=== PATIENT | female | born 1940 | race Caucasian/White ===

== ENCOUNTER 2021-01-28 17:21 | Emergency (ER) | payer MEDICARE, OTHER ==
[~2021-01-28] VITALS: Ht 165.1 cm; Wt 48.5 kg
--- NOTE | 2021-01-28 17:28 | ED General ---
General Stated Complaint: MEDICAL CHECK History of Present Illness Date Seen by Provider: Jan 28, 2021 Time Seen by Provider: 17:24 Initial Comments 80-year-old female brought in by EMS. EMS was called out from medical check after patient did not answer the phone. Patient also did not answer the door and the door was open by law enforcement per EMS. Patient reports that she did not answer the door or the phone because she "has a headache" and is tired. Patient reports that these are her only symptoms. She does not state when it started. Patient was lethargic per EMS when they arrived. Patient was given Narcan due to prescription for opioids which they feel seem to help. Patient does not want to answer a lot of questions but just states she is tired and wants to sleep. Allergies and Home Medications Allergies Coded Allergies: Sulfa (Sulfonamide Antibiotics) (Verified Allergy, Unknown, 01/28/21) erythromycin base (Verified Allergy, Unknown, 01/28/21) Home Medications Cephalexin 500 Mg Tablet, 500 MG PO QID Prescribed by: MASTER PARKER on 01/28/211813 Patient Home Medication List Home Medication List Reviewed: Yes Review of Systems Review of Systems Constitutional: see HPI EENTM: no symptoms reported Respiratory: no symptoms reported Cardiovascular: no symptoms reported Gastrointestinal: no symptoms reported Genitourinary: no symptoms reported Musculoskeletal: no symptoms reported Skin: no symptoms reported Psychiatric/Neurological: See HPI Hematologic/Lymphatic: No Symptoms Reported Immunological/Allergic: no symptoms reported Physical Exam Vital Signs Vital Signs - First Documented 01/28/21 17:21 Temp 36.0 Pulse 83 Resp 16 B/P (MAP) 126/60 (82) Pulse Ox 97 O2 Delivery Room Air Capillary Refill : Height, Weight, BMI Height: '" Weight: lbs. oz. 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 Norm as Tested, Other (Fatigued) Skin: Normal Color, Warm/Dry Focused Exam Lactate Level 01/28/21 17:45: Lactic Acid Level 0.95 Lactic Acid Level Laboratory Tests Test 01/28/21 17:45 Lactic Acid Level 0.95 MMOL/L (0.50-2.00) Progress/Results/Core Measures Suspected Sepsis SIRS Temperature: Pulse: Respiratory Rate: Laboratory Tests 01/28/21 17:30: White Blood Count 11.1H Blood Pressure / Mean: 01/28/21 17:45: Lactic Acid Level 0.95 Laboratory Tests 01/28/21 17:30: Creatinine 0.99, Platelet Count 272, Total Bilirubin 0.4 Results/Orders Lab Results Laboratory Tests Test 01/28/21 17:30 01/28/21 17:45 Range/Units White Blood Count 11.1 H 4.3-11.0 10^3/uL Red Blood Count 3.93 L 4.35-5.85 10^6/uL Hemoglobin 11.8 11.5-16.0 G/DL Hematocrit 37 35-52 % Mean Corpuscular Volume 93 80-99 FL Mean Corpuscular Hemoglobin 30 25-34 PG Mean Corpuscular Hemoglobin Concent 32 32-36 G/DL Red Cell Distribution Width 12.5 10.0-14.5 % Platelet Count 272 130-400 10^3/uL Mean Platelet Volume 10.0 7.4-10.4 FL Immature Granulocyte % (Auto) 0 % Neutrophils (%) (Auto) 65 42-75 % Lymphocytes (%) (Auto) 29 12-44 % Monocytes (%) (Auto) 5 0-12 % Eosinophils (%) (Auto) 0 0-10 % Basophils (%) (Auto) 1 0-10 % Neutrophils # (Auto) 7.2 1.8-7.8 X 10^3 Lymphocytes # (Auto) 3.2 1.0-4.0 X 10^3 Monocytes # (Auto) 0.6 0.0-1.0 X 10^3 Eosinophils # (Auto) 0.1 0.0-0.3 10^3/uL Basophils # (Auto) 0.1 0.0-0.1 10^3/uL Immature Granulocyte # (Auto) 0.0 0.0-0.1 10^3/uL Percent Immature Platelet Fraction 1.8 0.0-7.6 % Sodium Level 141 135-145 MMOL/L Potassium Level 3.8 3.6-5.0 MMOL/L Chloride Level 111 H 98-107 MMOL/L Carbon Dioxide Level 23 21-32 MMOL/L Anion Gap 7 5-14 MMOL/L Blood Urea Nitrogen 14 7-18 MG/DL Creatinine 0.99 0.60-1.30 MG/DL Estimat Glomerular Filtration Rate 54 BUN/Creatinine Ratio 14 Glucose Level 98 70-105 MG/DL Calcium Level 8.9 8.5-10.1 MG/DL Corrected Calcium 9.3 8.5-10.1 MG/DL Magnesium Level 2.2 1.6-2.4 MG/DL Total Bilirubin 0.4 0.1-1.0 MG/DL Aspartate Amino Transf (AST/SGOT) 15 5-34 U/L Alanine Aminotransferase (ALT/SGPT) 7 0-55 U/L Alkaline Phosphatase 41 40-136 U/L Total Protein 5.7 L 6.4-8.2 GM/DL Albumin 3.5 3.2-4.5 GM/DL Urine Color YELLOW Urine Clarity CLEAR Urine pH 6.5 5-9 Urine Specific [place] <=1.005 1.016-1.022 Urine Protein NEGATIVE NEGATIVE Urine Glucose (UA) NEGATIVE NEGATIVE Urine Ketones NEGATIVE NEGATIVE Urine Nitrite NEGATIVE NEGATIVE Urine Bilirubin NEGATIVE NEGATIVE Urine Urobilinogen 0.2 < = 1.0 MG/DL Urine Leukocyte Esterase 2+ H NEGATIVE Urine RBC (Auto) NEGATIVE NEGATIVE Urine RBC NONE /HPF Urine WBC 5-10 H /HPF Urine Squamous Epithelial Cells 0-2 /HPF Urine Crystals NONE /LPF Urine Bacteria NEGATIVE /HPF Urine Casts PRESENT /LPF Urine Hyaline Casts 2-5 H /LPF Urine Mucus NEGATIVE /LPF Urine Culture Indicated NO Lactic Acid Level 0.95 0.50-2.00 MMOL/L My Orders Orders - PARKER,MASTER L DO Ct Head Wo (01/28/21 17:28) Cbc With Automated Diff (01/28/21 17:28) Comprehensive Metabolic Panel (01/28/21 17:28) Lactic Acid Analyzer (01/28/21 17:28) Magnesium (01/28/21 17:28) Ua Culture If Indicated (01/28/21 17:28) Accucheck Stat ONCE (01/28/21 17:29) Ekg Tracing (01/28/21 17:29) Ceftriaxone (Rocephin) (01/28/21 18:15) Ketorolac Injection (Toradol Injection) (01/28/21 18:10) Medications Given in ED Current Medications Medications Dose Ordered Sig/James Route Start Time Stop Time Status Last Admin Dose Admin Ceftriaxone Sodium 1000 mg/ Sterile Water 10 ml @ 200 mls/hr ONCE ONCE IV 01/28/21 18:15 01/28/21 18:17 DC 01/28/21 18:18 200 MLS/HR Vital Signs/I&O 01/28/21 17:21 Temp 36.0 Pulse 83 Resp 16 B/P (MAP) 126/60 (82) Pulse Ox 97 O2 Delivery Room Air Capillary Refill : Progress Note : Progress Note Patient able to ambulate and answer all questions appropriately throughout her stay. Patient does not seem as fatigued as when she initially got here. Patient has slight elevated white count and a questionable urine. With the fatigue, headache and lab findings I will treat her for UTI. Patient's work-up was otherwise normal. Patient will be discharged back home. I will prescribe her Keflex for 5 days after receiving Rocephin here in the ER. ECG Initial ECG Impression Date: Jan 28, 2021 Initial ECG Impression Time: 18:01 Initial ECG Rate: 83 Initial ECG Rhythm: Normal Sinus, PVC Initial ECG Impression: Nonspecific Changes Comment no acute changes Diagnostic Imaging Diagonstic Imaging: CT Plain Films/CT/US/NM/MRI: head Comments Date of Exam:01/28/21 CT HEAD WO PROCEDURE: CT head without contrast. TECHNIQUE: Multiple contiguous axial images were obtained through the brain without the use of intravenous contrast. Auto Exposure Controls were utilized during the CT exam to meet ALARA standards for radiation dose reduction. INDICATION: Altered mental status and headache. COMPARISON: None available. FINDINGS: No hyperdense hemorrhage or space-occupying mass. No hydrocephalus or midline shift. The basilar cisterns are normal. Griffin-white matter differentiation is well preserved. Global atrophy is present The mastoid air cells are clear. Paranasal sinuses are normal. No focal osseous abnormality of the calvarium. IMPRESSION: 1. No acute intracranial process. Reviewed: Reviewed by Me, Reviewed/Discussed Departure Impression Primary Impression: Acute cystitis Qualified Codes: N30.00 - Acute cystitis without hematuria Disposition: HOME, SELF-CARE Condition: Stable Departure-Patient Inst. Patient Instructions: Acute Cystitis (DC) Add. Discharge Instructions: Drink plenty of fluids, follow-up with your primary care provider as needed Scripts Cephalexin (Cephalexin) 500 Mg Tablet 500 MG PO QID, #20 TAB 0 Refills Prov: MASTER PARKER DO 01/28/21 MASTER PARKER DO Jan 28, 2021 17:27
[2021-01-28 17:41] LABS: BASOPHILS % (AUTO) 1 % (0-10); EOSINOPHILS % (AUTO) 0 % (0-10); HEMATOCRIT 37 % (35-52); HEMOGLOBIN 11.8 G/DL (11.5-16.0); LYMPHOCYTES % (AUTO) 29 % (12-44); MEAN CORPUSCULAR HEMOGLOBIN 30 PG (25-34); MEAN CORPUSCULAR HGB CONC 32 G/DL (32-36); MEAN CORPUSCULAR VOLUME 93 FL (80-99); MONOCYTES % (AUTO) 5 % (0-12); NEUTROPHILS # (AUTO) 7.2 X 10^3 (1.8-7.8); NEUTROPHILS % (AUTO) 65 % (42-75); PLATELET COUNT 272 10^3/uL (130-400); WHITE BLOOD COUNT 11.1 10^3/uL (4.3-11.0)
[2021-01-28 17:42] LABS: BASOPHILS # (AUTO) 0.1 10^3/uL (0.0-0.1); EOSINOPHILS # (AUTO) 0.1 10^3/uL (0.0-0.3); LYMPHOCYTES # (AUTO) 3.2 X 10^3 (1.0-4.0); MONOCYTES # (AUTO) 0.6 X 10^3 (0.0-1.0)
--- NOTE | 2021-01-28 17:45 | Diagnostic Imaging Report ---
PROCEDURE: CT head without contrast. TECHNIQUE: Multiple contiguous axial images were obtained through the brain without the use of intravenous contrast. Auto Exposure Controls were utilized during the CT exam to meet ALARA standards for radiation dose reduction. INDICATION: Altered mental status and headache. COMPARISON: None available. FINDINGS: No hyperdense hemorrhage or space-occupying mass. No hydrocephalus or midline shift. The basilar cisterns are normal. Griffin-white matter differentiation is well preserved. Global atrophy is present The mastoid air cells are clear. Paranasal sinuses are normal. No focal osseous abnormality of the calvarium. IMPRESSION: 1. No acute intracranial process. Dictated by: Dictated on workstation # [id number]
[2021-01-28 17:51] LABS: BILIRUBIN,URINE NEGATIVE (NEGATIVE); CLARITY,URINE CLEAR; COLOR,URINE YELLOW; GLUCOSE, URINE (UA) NEGATIVE (NEGATIVE); KETONES,URINE NEGATIVE (NEGATIVE); LEUKOCYTE ESTERASE ,URINE 2+ (NEGATIVE); NITRITE,URINE NEGATIVE (NEGATIVE); PH,URINE 6.5 (5-9); PROTEIN,URINE NEGATIVE (NEGATIVE)
[2021-01-28 18:03] LABS: BACTERIA,URINE NEGATIVE /HPF; SQUAMOUS EPITHELIAL CELL,UR 0-2 /HPF
[2021-01-28 18:05] LABS: ALBUMIN 3.5 GM/DL (3.2-4.5); BILIRUBIN,TOTAL 0.4 MG/DL (0.1-1.0); CALCIUM 8.9 MG/DL (8.5-10.1); CREATININE SERUM 0.99 MG/DL (0.60-1.30); MAGNESIUM 2.2 MG/DL (1.6-2.4); POTASSIUM 3.8 MMOL/L (3.6-5.0); TOTAL PROTEIN 5.7 GM/DL (6.4-8.2)
[2021-01-28] MEDS ORDERED: KETOROLAC 30 MG/ML VIAL IVP STA (18:10)
[2021-01-28] MEDS ORDERED: CEPH500T PO (18:14)
[2021-01-28] MEDS ORDERED: cefTRIAXone 1,000 MG in WATER (STERILE) FOR INJECTION 10 ML IV ONE (18:15)
[2021-01-28 18:25] VITALS: BP 132/66
== END 2021-01-28 18:25 | disposition home or self-care (01) ==
LOC: ER FS 17:22
DX: N30.00 Acute cystitis without hematuria (principal)
CPT/HCPCS: 36415; 70450; 80053; 81000; 83605; 83735; 85025; 93005

== ENCOUNTER 2022-04-05 13:18 | Emergency (ER) | payer MEDICARE, OTHER ==
[~2022-04-05 13:18] MED LIST: CEPH500T PO
[2022-04-05 13:40] LABS: BILIRUBIN,URINE NEGATIVE (NEGATIVE); CLARITY,URINE CLEAR; COLOR,URINE YELLOW; GLUCOSE, URINE (UA) NEGATIVE (NEGATIVE); KETONES,URINE NEGATIVE (NEGATIVE); LEUKOCYTE ESTERASE ,URINE TRACE (NEGATIVE); NITRITE,URINE NEGATIVE (NEGATIVE); PROTEIN,URINE NEGATIVE (NEGATIVE)
[2022-04-05 13:40] LABS: BASOPHILS # (AUTO) 0.1 10^3/uL (0.0-0.1); BASOPHILS % (AUTO) 1 % (0-10); EOSINOPHILS # (AUTO) 0.2 10^3/uL (0.0-0.3); EOSINOPHILS % (AUTO) 2 % (0-10); HEMATOCRIT 36 % (35-52); HEMOGLOBIN 11.5 g/dL (11.5-16.0); LYMPHOCYTES # (AUTO) 3.2 10^3/uL (1.0-4.0); LYMPHOCYTES % (AUTO) 25 % (12-44); MEAN CORPUSCULAR HEMOGLOBIN 31 pg (25-34); MEAN CORPUSCULAR HGB CONC 32 g/dL (32-36); MEAN CORPUSCULAR VOLUME 96 fL (80-99); MEAN PLATELET VOLUME 9.8 fL (9.0-12.2); MONOCYTES # (AUTO) 0.8 10^3/uL (0.0-1.0); MONOCYTES % (AUTO) 6 % (0-12); NEUTROPHILS # (AUTO) 8.6 10^3/uL (1.8-7.8); NEUTROPHILS % (AUTO) 66 % (42-75); PLATELET COUNT 257 10^3/uL (130-400); WHITE BLOOD COUNT 12.9 10^3/uL (4.3-11.0)
[2022-04-05] MEDS ORDERED: NS IV 1000 ML 1,000 ML IV STA (13:42)
[2022-04-05 13:47] LABS: BACTERIA,URINE MODERATE /HPF; WBC,URINE 25-50 /HPF
--- NOTE | 2022-04-05 13:49 | ED General ---
General Chief Complaint: Altered Mental Status Stated Complaint: CONFUSED Source of Information: Patient History of Present Illness Date Seen by Provider: Apr 05, 2022 Time Seen by Provider: 13:21 Initial Comments 81 yo female presents with complaint of being tired. She was brought by her family and they state she is more confused than usual and that this is a change since yesterday. Her daughter talked to her several times on the phone yesterday and said she was doing ok then. Today she is slow to answer questions and keeps saying she is tired. She has complaint of increased bile and upset stomach. She states she saw Dr. Brooks 4 days ago and she got Influenza and Pneumonia shots. She reports that he did a CT scan of her abdomen/pelvis because she was having pain. She denies vomiting, diarrhea, constipation, pain with urination. She was prescribed Oxycodone, Alprazolam and Promethazine this week. She reports taking Oxycodone and Alprazolam last night and Promethazine today. She denies fall or injury. Timing/Duration: 12-24 Hours Severity: Moderate Associated Systoms: No Chest Pain, No Cough, No Diaphoresis, No Fever/Chills, No Headaches, No Loss of Appetite, No Malaise, No Rash, No Seizure, No Shortness of Air, No Syncope, No Weakness Allergies and Home Medications Allergies Coded Allergies: Sulfa (Sulfonamide Antibiotics) (Verified Allergy, Unknown, 01/28/21) erythromycin base (Verified Allergy, Unknown, 01/28/21) Patient Home Medication List Home Medication List Reviewed: Yes Cephalexin (Cephalexin) 500 Mg Capsule, 500 MG PO TID Prescribed by: YONI BERUMEN on 04/05/22 1445 Discontinued Medications Cephalexin (Cephalexin) 500 Mg Tablet, 500 MG PO QID Prescribed by: MASTER PARKER on 01/28/21 1814 Review of Systems Review of Systems Constitutional: No chills, No dizziness, No fever EENTM: No ear discharge, No ear pain, No vision loss, No nose congestion Respiratory: No cough, No short of breath Cardiovascular: No chest pain Gastrointestinal: see HPI Genitourinary: decreased output Musculoskeletal: no symptoms reported Skin: No rash Psychiatric/Neurological: Denies Headache, Denies Numbness, Denies Weakness Hematologic/Lymphatic: Denies Blood Clots Past Hdhdkiq-Ikitvt-Oupkrh Hx Patient Social History Tobacco Use?: No Use of E-Cig and/or Vaping dev: No Substance use?: No Alcohol Use?: No Pt feels they are or have been: No Past Medical History Surgery/Hospitalization HX: Hypothyroid Physical Exam Vital Signs Vital Signs - First Documented 04/05/22 13:41 Temp 35.6 Pulse 96 Resp 18 B/P (MAP) 127/64 (85) Pulse Ox 96 O2 Delivery Room Air Capillary Refill : Height, Weight, BMI Height: '" Weight: lbs. oz. kg; 17.00 BMI Method: General Appearance: No Apparent Distress, WD/WN HEENT: PERRL/EOMI, Pharynx Normal Neck: Full Range of Motion, Normal Inspection, Non Tender, Supple Respiratory: Chest Non Tender, Lungs Clear, Normal Breath Sounds, No Accessory Muscle Use, No Respiratory Distress Cardiovascular: Regular Rate, Rhythm, Normal Peripheral Pulses Gastrointestinal: Normal Bowel Sounds, No Pulsatile Mass, Soft; No Distended, No Guarding, No Hepatomegaly, No Rebound; Tenderness (epigastric and suprapubic) Rectal: Deferred Extremity: Normal Capillary Refill, Normal Inspection, No Pedal Edema Neurologic/Psychiatric: Alert, Oriented x3 (slow to answer questions but oriented x 3. 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 Norm as Tested Skin: Normal Color, Warm/Dry Progress/Results/Core Measures Suspected Sepsis SIRS Temperature: Pulse: Respiratory Rate: Laboratory Tests 04/05/22 13:35: White Blood Count 12.9H Blood Pressure / Mean: Laboratory Tests 04/05/22 13:35: Creatinine 1.23, INR Comment 1.0, Platelet Count 257, Total Bilirubin 0.2 Results/Orders Lab Results Laboratory Tests Test 04/05/22 13:30 04/05/22 13:35 Range/Units Urine Color YELLOW Urine Clarity CLEAR Urine pH 6.0 5-9 Urine Specific [place] 1.020 1.016-1.022 Urine Protein NEGATIVE NEGATIVE Urine Glucose (UA) NEGATIVE NEGATIVE Urine Ketones NEGATIVE NEGATIVE Urine Nitrite NEGATIVE NEGATIVE Urine Bilirubin NEGATIVE NEGATIVE Urine Urobilinogen 0.2 < = 1.0 MG/DL Urine Leukocyte Esterase TRACE H NEGATIVE Urine RBC (Auto) NEGATIVE NEGATIVE Urine RBC NONE /HPF Urine WBC 25-50 H /HPF Urine Squamous Epithelial Cells 10-25 H /HPF Urine Crystals NONE /LPF Urine Bacteria MODERATE H /HPF Urine Casts PRESENT /LPF Urine Hyaline Casts 5-10 H /LPF Urine Mucus NEGATIVE /LPF Urine Culture Indicated YES Urine Opiates Screen NEGATIVE NEGATIVE Urine Oxycodone Screen POSITIVE H NEGATIVE Urine Methadone Screen NEGATIVE NEGATIVE Urine Propoxyphene Screen NEGATIVE NEGATIVE Urine Barbiturates Screen NEGATIVE NEGATIVE Ur Tricyclic Antidepressants Screen POSITIVE H NEGATIVE Urine Phencyclidine Screen NEGATIVE NEGATIVE Urine Amphetamines Screen NEGATIVE NEGATIVE Urine Methamphetamines Screen NEGATIVE NEGATIVE Urine Benzodiazepines Screen POSITIVE H NEGATIVE Urine Cocaine Screen NEGATIVE NEGATIVE Urine Cannabinoids Screen NEGATIVE NEGATIVE White Blood Count 12.9 H 4.3-11.0 10^3/uL Red Blood Count 3.71 L 3.80-5.11 10^6/uL Hemoglobin 11.5 11.5-16.0 g/dL Hematocrit 36 35-52 % Mean Corpuscular Volume 96 80-99 fL Mean Corpuscular Hemoglobin 31 25-34 pg Mean Corpuscular Hemoglobin Concent 32 32-36 g/dL Red Cell Distribution Width 12.9 10.0-14.5 % Platelet Count 257 130-400 10^3/uL Mean Platelet Volume 9.8 9.0-12.2 fL Immature Granulocyte % (Auto) 0 % Neutrophils (%) (Auto) 66 42-75 % Lymphocytes (%) (Auto) 25 12-44 % Monocytes (%) (Auto) 6 0-12 % Eosinophils (%) (Auto) 2 0-10 % Basophils (%) (Auto) 1 0-10 % Neutrophils # (Auto) 8.6 H 1.8-7.8 10^3/uL Lymphocytes # (Auto) 3.2 1.0-4.0 10^3/uL Monocytes # (Auto) 0.8 0.0-1.0 10^3/uL Eosinophils # (Auto) 0.2 0.0-0.3 10^3/uL Basophils # (Auto) 0.1 0.0-0.1 10^3/uL Immature Granulocyte # (Auto) 0.0 0.0-0.1 10^3/uL Prothrombin Time 13.1 12.2-14.7 SEC INR Comment 1.0 0.8-1.4 Activated Partial Thromboplast Time 29 24-35 SEC Sodium Level 139 135-145 MMOL/L Potassium Level 3.7 3.6-5.0 MMOL/L Chloride Level 105 98-107 MMOL/L Carbon Dioxide Level 26 21-32 MMOL/L Anion Gap 8 5-14 MMOL/L Blood Urea Nitrogen 19 H 7-18 MG/DL Creatinine 1.23 0.60-1.30 MG/DL Estimat Glomerular Filtration Rate 44 BUN/Creatinine Ratio 15 Glucose Level 82 70-105 MG/DL Calcium Level 9.3 8.5-10.1 MG/DL Corrected Calcium 9.4 8.5-10.1 MG/DL Magnesium Level 2.2 1.6-2.4 MG/DL Total Bilirubin 0.2 0.1-1.0 MG/DL Aspartate Amino Transf (AST/SGOT) 39 H 5-34 U/L Alanine Aminotransferase (ALT/SGPT) 21 0-55 U/L Alkaline Phosphatase 72 40-136 U/L Troponin I < 0.30 <0.30 NG/ML Pro-B-Type Natriuretic Peptide 551.2 H <450.0 PG/ML Total Protein 6.4 6.4-8.2 GM/DL Albumin 3.9 3.2-4.5 GM/DL My Orders Orders - YONI BERUMEN MD Cbc With Automated Diff (04/05/22 13:29) Magnesium (04/05/22 13:29) Comprehensive Metabolic Panel (04/05/22 13:29) Protime With Inr (04/05/22 13:29) Partial Thromboplastin Time (04/05/22 13:29) O2 (04/05/22 13:29) Monitor-Rhythm Ecg Trace Only (04/05/22 13:29) Ed Iv/Invasive Line Start (04/05/22 13:29) Troponin I Fs (04/05/22 13:29) Probnp Fs (04/05/22 13:29) Ua Culture If Indicated (04/05/22 13:29) Drug Screen Stat (Urine) (04/05/22 13:29) Ct Head Wo (04/05/22 13:41) Ct Abdomen/Pelvis Wo (04/05/22 13:41) Ns Iv 1000 Ml (Sodium Chloride 0.9%) (04/05/22 13:42) Urine Culture (04/05/22 13:30) Ceftriaxone 1 Gm Pre-Mix (Rocephin 1 Gm (04/05/22 14:08) Vital Signs/I&O 10/8/22 10/8/22 13:41 14:39 Temp 35.6 35.6 Pulse 96 80 Resp 18 18 B/P (MAP) 127/64 (85) 104/43 Pulse Ox 96 99 O2 Delivery Room Air Room Air Capillary Refill : Progress Note #1: Progress Note From my review of her previous visit in the ED in 2020 she had similar complaints at that time and was found to have a UTI. Will check labs, Urine, Urine drug screen, CT head and abd/pelvis. Give NS 1 L IVF bolus for hydration while waiting on results. The medicines she takes chronically can certainly contribute to her being tired and slow to answer questions. From review of external medical list from pharmacy she has chronic Percocet, Xanax, [place]in, Seroquel, Phenergan that are all prescribed to her. Differential diagnosis includes UTI, stroke, diverticulitis, colitis, pyelonephritis, electrolyte imbalance, medication side effects Progress Note #2: Time: 14:24 Progress Note Stable CBC, Chemistry and coags without acute significant abnormality to explain her complaints. She did have mild elevation of WBC to 12.9. Troponin I was negative at <0.3. Urine Drug screen positive only for the medicines she is prescribed. UA shows LE with WBC and bacteria for UTI. CT head read out as no acute process. Treat with Rocephin 1 gm IV here in ED and unless CT scan of abd/pelvis shows something more severe going on will plan on treating her for UTI and encourage hydration and follow up with her PCP. Progress Note #3: Time: 14:[address] scan of the abdomen and pelvis does not show any acute process to account for her symptoms. We will proceed with treatment for UTI. Encourage fluids and hydration. Counseled that medicine she takes chronically could also be contributing to her fatigue. Follow-up with her doctor for continued concerns. Diagnostic Imaging Diagonstic Imaging: CT Plain Films/CT/US/NM/MRI: head Comments NAME: GUTIERREZ SEARS [facility] REC#: [id number] PT STATUS: REG ER : 1940 PHYSICIAN: YONI BERUMEN MD ADMIT DATE: 04/05/22/ER FS Draft Date of Exam:04/05/22 CT HEAD WO PROCEDURE: CT head without contrast. TECHNIQUE: Multiple contiguous axial images were obtained through the brain without the use of intravenous contrast. Auto Exposure Controls were utilized during the CT exam to meet ALARA standards for radiation dose reduction. INDICATION: Lethargy, confusion EXAMINATION: CT brain 04/05/2022 COMPARISON: 01/28/2021. FINDINGS: Atrophy is stable and age appropriate. No hemorrhage, infarct or mass appreciated. No mass effect or midline shift appreciated. There is no hydrocephalus. IMPRESSION: 1. Chronic findings with no acute intracranial process. Dictated on workstation # [id number] Dict: 04/05/22 1401 Trans: 04/05/22 1418 [facility] [place] [id number] Interpreted by: ELIUD ELLIS MD Electronically signed by: Reviewed: Reviewed by Me Diagonstic Imaging: CT Plain Films/CT/US/NM/MRI: abdomen, pelvis Comments NAME: GUTIERREZ SEARS [facility] REC#: [id number] PT STATUS: REG ER : 1940 PHYSICIAN: YONI BERUMEN MD ADMIT DATE: 04/05/22/ER FS Draft Date of Exam:04/05/22 CT ABDOMEN/PELVIS WO PROCEDURE: CT abdomen and pelvis without contrast. TECHNIQUE: Multiple contiguous axial images were obtained through the abdomen and pelvis without the use of intravenous contrast. Auto Exposure Controls were utilized during the CT exam to meet ALARA standards for radiation dose reduction. INDICATION: Epigastric and suprapubic pain I have no priors. There is patchy bi-basilar atelectatic changes. No basilar pleural fluid. There is a retained ingested material within a non-thickened but moderately distended stomach. No findings of small or large bowel obstruction. There is no pathological colonic fecal loading. No pneumatosis. No free air. There is no hydroureteronephrosis. No radiopaque urinary tract stones an exophytic cyst off the lower pole of the left kidney noted. The liver, gallbladder and bile ducts unremarkable. Spleen within normal limits of size. The pancreas unremarkable. There is no adrenal mass. The aorta nonaneurysmal. Urinary bladder was nearly empty severely limiting its evaluation. There was no acute bony pathology. There are chronic degenerative changes noted. There is equivocal circumferential thickening of the rectum and no perirectal stranding or edema. There is no appendicitis or findings of diverticulitis. No ascites, abscess, hematoma or acute fluid collection. IMPRESSION: No bowel, biliary or urinary tract obstruction. There is mild distention of the stomach containing retained foodstuffs. No abnormal fecal loading. No diverticulitis. EQUIVOCAL thickening of the rectum without apparent perirectal stranding or edema. Normal appendix. No diverticulitis. Zones of bibasilar atelectasis with no basilar pleural fluid and no abdominal pelvic ascites or fluid collection. Dictated on workstation # [id number] Dict: 04/05/22 1401 Trans: 04/05/22 1430 [facility] [place] [phone] Interpreted by: JASON AUGUSTIN Electronically signed by: Reviewed: Reviewed by Me Departure Impression Primary Impression: Acute cystitis without hematuria Additional Impression: Fatigue Qualified Codes: R53.83 - Other fatigue Disposition: HOME, SELF-CARE Condition: Stable Departure-Patient Inst. Decision time for Depature: 14:34 Referrals: DIANA RAMSEY MD (PCP) Primary Care Physician STEPHAN BROOKS MD (Family) Primary Care Physician Patient Instructions: Fatigue ED, Urinary Tract Infection, Adult ED Add. Discharge Instructions: Stay well hydrated and drink plenty of water and electrolyte drinks to help flush out your urine infection. Take full course of antibiotics to treat for UTI. Follow up with Dr. Brooks for continued concerns. Your medicines you take chronically can certainly cause you to be more fatigued as well as fighting a UTI All discharge instructions reviewed with patient and/or family. Voiced understanding. Scripts Cephalexin (Cephalexin) 500 Mg Capsule 500 MG PO TID for UTI for 5 Days, #15 CAP 0 Refills Prov: YONI BERUMEN MD 04/05/22 YONI BERUMEN MD Apr 05, 2022 13:49
[2022-04-05 13:52] LABS: AMPHETAMINE SCREEN, URINE NEGATIVE (NEGATIVE); BARBITURATE SCREEN URINE NEGATIVE (NEGATIVE); BENZODIAZEPINES SCREEN URINE POSITIVE (NEGATIVE); CANNABINOID SCREEN, URINE NEGATIVE (NEGATIVE); COCAINE SCREEN URINE NEGATIVE (NEGATIVE); METHADONE STAT NEGATIVE (NEGATIVE); OPIATE SCREEN URINE NEGATIVE (NEGATIVE); OXYCODONE STAT POSITIVE (NEGATIVE); PROPOXYPHENE STAT NEGATIVE (NEGATIVE); TRICYCLIC ANTIDEPRESSANTS SCRE POSITIVE (NEGATIVE)
[2022-04-05 13:56] LABS: PROTHROMBIN TIME PATIENT 13.1 SEC (12.2-14.7)
[2022-04-05 14:07] LABS: BILIRUBIN,TOTAL 0.2 MG/DL (0.1-1.0); CALCIUM 9.3 MG/DL (8.5-10.1); CREATININE SERUM 1.23 MG/DL (0.60-1.30); MAGNESIUM 2.2 MG/DL (1.6-2.4); POTASSIUM 3.7 MMOL/L (3.6-5.0); TOTAL PROTEIN 6.4 GM/DL (6.4-8.2)
[2022-04-05 14:08] LABS: ALBUMIN 3.9 GM/DL (3.2-4.5)
[2022-04-05] MEDS ORDERED: cefTRIAXone 1 GM PRE-MIX 50 ML IV STA (14:08)
--- NOTE | 2022-04-05 14:19 | Diagnostic Imaging Report ---
PROCEDURE: CT head without contrast. TECHNIQUE: Multiple contiguous axial images were obtained through the brain without the use of intravenous contrast. Auto Exposure Controls were utilized during the CT exam to meet ALARA standards for radiation dose reduction. INDICATION: Lethargy, confusion EXAMINATION: CT brain 04/05/2022 COMPARISON: 01/28/2021. FINDINGS: Atrophy is stable and age appropriate. No hemorrhage, infarct or mass appreciated. No mass effect or midline shift appreciated. There is no hydrocephalus. IMPRESSION: 1. Chronic findings with no acute intracranial process. Dictated by: Dictated on workstation # [id number]
--- NOTE | 2022-04-05 14:31 | Diagnostic Imaging Report ---
PROCEDURE: CT abdomen and pelvis without contrast. TECHNIQUE: Multiple contiguous axial images were obtained through the abdomen and pelvis without the use of intravenous contrast. Auto Exposure Controls were utilized during the CT exam to meet ALARA standards for radiation dose reduction. INDICATION: Epigastric and suprapubic pain I have no priors. There is patchy bi-basilar atelectatic changes. No basilar pleural fluid. There is a retained ingested material within a non-thickened but moderately distended stomach. No findings of small or large bowel obstruction. There is no pathological colonic fecal loading. No pneumatosis. No free air. There is no hydroureteronephrosis. No radiopaque urinary tract stones an exophytic cyst off the lower pole of the left kidney noted. The liver, gallbladder and bile ducts unremarkable. Spleen within normal limits of size. The pancreas unremarkable. There is no adrenal mass. The aorta nonaneurysmal. Urinary bladder was nearly empty severely limiting its evaluation. There was no acute bony pathology. There are chronic degenerative changes noted. There is equivocal circumferential thickening of the rectum and no perirectal stranding or edema. There is no appendicitis or findings of diverticulitis. No ascites, abscess, hematoma or acute fluid collection. IMPRESSION: No bowel, biliary or urinary tract obstruction. There is mild distention of the stomach containing retained foodstuffs. No abnormal fecal loading. No diverticulitis. EQUIVOCAL thickening of the rectum without apparent perirectal stranding or edema. Normal appendix. No diverticulitis. Zones of bibasilar atelectasis with no basilar pleural fluid and no abdominal pelvic ascites or fluid collection. Dictated by: Dictated on workstation # [id number]
[2022-04-05] MEDS ORDERED: CEPH500C PO ×2 (14:36→14:45)
[2022-04-05 14:39] VITALS: BP 104/43
== END 2022-04-05 14:40 | disposition home or self-care (01) ==
LOC: EDUNIT# 13:18 → ER FS 13:22
DX: N30.00 Acute cystitis without hematuria (principal); R53.83 Other fatigue
CPT/HCPCS: 36415; 70450; 74176; 80053; 80306; 81000; 83735; 83880; 84484; 85025; 85610; 85730; 87088